=== PATIENT | female | born 1995 | race Caucasian/White ===

== ENCOUNTER 2023-01-30 12:40 | Outpatient (CLI) | payer OTHER | END 2023-01-30 12:41 | disposition home or self-care (01) | LOC: SCSMRI 12:40 | PROVIDERS: ATTEND Nurse Practitioner Family | DX: Z09 Encounter for follow-up examination after completed treatment for conditions other than malignant neoplasm (principal); U09.9 Post COVID-19 condition, unspecified; R00.0 Tachycardia, unspecified; R56.9 Unspecified convulsions | CPT/HCPCS: 70553 ==